=== PATIENT | male | born 1970 ===

== ENCOUNTER 2020-02-24 14:16 | Outpatient (CLI) | payer OTHER, SELFPAY ==
--- NOTE | ~2020-02-24 | XR_ITS ---
XR hip BI 2V w AP pelvis DATE: 02/24/2020 15:06 INDICATION: Bilateral hip pain TECHNIQUE: AP pelvis. AP and lateral views of each hip COMPARISON: None FINDINGS: There is a large benign-appearing apparently degenerative cyst at the right pubis. No pelvic fracture or bone destruction is noted otherwise. Normal alignment at the pubic symphysis an d sacroiliac joints. Hip joint spaces are symmetric and relatively preserved. No fracture or dislocation, avascular necros is or bone destruction of either hip is evident. IMPRESSION: Large benign likely degenerative cyst of right pubis Reviewed, dictated and finalized at location A.
== END 2020-02-24 14:17 | disposition home or self-care (01) ==
PROVIDERS: PCP Family Medicine; Visit Provider Family Medicine
DX: M25.551 Pain in right hip (principal); M25.552 Pain in left hip
CPT/HCPCS: 73521